=== PATIENT | male | born 1955 | race Caucasian/White ===

== ENCOUNTER 2017-02-24 01:51 | Observation (INO) | payer MEDICARE ==
[~2017-02-24] VITALS: Ht 193 cm; Wt 81.7 kg
[~2017-02-24 01:51] MED LIST: ALBU90OI INH; ALBU90OI6 INH; ASPI325EC PO; AZIT250 PO; CEPH500 PO; CHLO10 PO; CLOP75 PO; GUAI600T33 PO; IBUP800 PO; KETO10 PO; LORA1 PO; METH10 PO; METH40 PO; OXYC30 PO; OXYC80ER PO; PROM25 PO; TIOT18 IH; TRAM50 PO; WARF10 PO; WARF5 PO; XARELTO20 MG PO
[2017-02-24 02:32] LABS: BASOPHILS ABSOLUTE AUTO 0.08 K/mm3 (0.00-0.23); BASOPHILS PERCENT AUTO 1 % (0-2); EOSINOPHILS PERCENT AUTO 2 % (0-6); Hematocrit 42.5 % (37.0-53.0); IMMATURE GRAN ABSOLUTE AUTO 0.01 K/mm3 (0.00-0.10); IMMATURE GRAN PERCENT AUTO 0 % (0-1); LYMPHOCYTES ABSOLUTE AUTO 2.12 K/mm3 (0.84-5.20); LYMPHOCYTES PERCENT AUTO 32 % (21-46); MONOCYTES ABSOLUTE AUTO 0.37 K/mm3 (0.16-1.47); MONOCYTES PERCENT AUTO 6 % (4-13); Mean Corpuscular HGB Conc 32.9 g/dL (31.5-36.5); Mean Corpuscular Volume 100 fL (80-100); Mean Platelet Volume 9.7 fL (9.1-12.4); NEUTROPHILS ABSOLUTE AUTO 3.92 K/mm3 (1.96-9.15); NEUTROPHILS PERCENT AUTO 59 % (41-73); Platelet Count 244 K/mm3 (150-400); RDW Coefficient Variation 15.5 % (11.7-14.2); RDW Standard Deviation 56.5 fL (35.1-46.3); Red Blood Cell Count 4.24 M/mm3 (4.30-5.90)
[2017-02-24 02:51] LABS: Anion Gap 8 mmol/L (6-16); Blood Urea Nitrogen 11 mg/dL (8-24); Bun/Creatinine Ratio 11.9 (12.0-20.0); CO2, Blood 25 mmol/L (21-32); Calcium, Blood 8.2 mg/dL (8.5-10.1); Chloride, Blood 109 mmol/L (98-108); Creatinine, Blood 0.93 mg/dL (0.60-1.20); Glomerular Filtration Rate >60 (60-); Glucose, Blood 98 mg/dL (70-99); Potassium, Blood 3.8 mmol/L (3.5-5.5); Sodium, Blood 142 mmol/L (136-145); Troponin I <0.015 ng/mL (0.000-0.040)
[2017-02-24 03:36] LABS: Ethanol (Alcohol), Blood, Med 381 mg/dL
== END 2017-02-24 05:52 | disposition home or self-care (01) ==
LOC: ER 01:51 → EOR 01:52
PROVIDERS: Emergency Medicine
DX: F10.129 Alcohol abuse with intoxication, unspecified (principal); Z79.82 Long term (current) use of aspirin; R10.9 Unspecified abdominal pain; F17.200 Nicotine dependence, unspecified, uncomplicated; Z86.73 Personal history of transient ischemic attack (TIA), and cerebral infarction without residual deficits; Z86.718 Personal history of other venous thrombosis and embolism; Z88.5 Allergy status to narcotic agent; Z79.899 Other long term (current) drug therapy; Z98.890 Other specified postprocedural states
CPT/HCPCS: 36415; 71046; 74177; 80048; 82272; 83690; 84484; 85025; 93005; 93010; 96361; 96374; 99285; G0378; G0480; J2060; J7030; Q9967

== ENCOUNTER 2019-05-27 18:37 | Emergency (ER) | payer MEDICARE, OTHER ==
[~2019-05-27] VITALS: Ht 193 cm; Wt 95.2 kg
[2019-05-27 19:34] LABS: BASOPHILS ABSOLUTE AUTO 0.07 K/mm3 (0.00-0.23); BASOPHILS PERCENT AUTO 1 % (0-2); EOSINOPHILS ABSOLUTE AUTO 0.47 K/mm3 (0.00-0.68); EOSINOPHILS PERCENT AUTO 7 % (0-6); Hematocrit 42.8 % (37.0-53.0); Hemoglobin 14.5 g/dL (13.5-17.5); IMMATURE GRAN ABSOLUTE AUTO 0.01 K/mm3 (0.00-0.10); IMMATURE GRAN PERCENT AUTO 0 % (0-1); LYMPHOCYTES ABSOLUTE AUTO 1.31 K/mm3 (0.84-5.20); LYMPHOCYTES PERCENT AUTO 21 % (21-46); MONOCYTES ABSOLUTE AUTO 0.67 K/mm3 (0.16-1.47); MONOCYTES PERCENT AUTO 11 % (4-13); Mean Corpuscular HGB Conc 33.9 g/dL (31.5-36.5); Mean Corpuscular Volume 98 fL (80-100); Mean Platelet Volume 9.8 fL (9.1-12.4); NEUTROPHILS ABSOLUTE AUTO 3.86 K/mm3 (1.96-9.15); NEUTROPHILS PERCENT AUTO 60 % (41-73); Platelet Count 248 K/mm3 (150-400); RDW Coefficient Variation 14.3 % (11.7-14.2); RDW Standard Deviation 51.4 fL (35.1-46.3); Red Blood Cell Count 4.39 M/mm3 (4.30-5.90); White Blood Cell Count 6.39 K/mm3 (4.00-11.30)
[2019-05-27 19:55] LABS: Alanine Aminotransfer (ALT/SGP 20 U/L (12-78); Albumin/Globulin Ratio 0.7 (0.8-1.8); Alk Phos 54 U/L (50-136); Anion Gap 6 mmol/L (6-16); Aspartate Aminotrans (AST/SGOT 30 U/L (12-37); Bilirubin, Total 0.3 mg/dL (0.1-1.0); Blood Urea Nitrogen 10 mg/dL (8-24); Bun/Creatinine Ratio 12.2 (12.0-20.0); CO2, Blood 22 mmol/L (21-32); Calcium, Blood 8.6 mg/dL (8.5-10.1); Chloride, Blood 112 mmol/L (98-108); Creatinine, Blood 0.82 mg/dL (0.60-1.20); Ethanol (Alcohol), Blood, Med 257 mg/dL; Globulin, Blood 4.5 g/dL (2.2-4.0); Glomerular Filtration Rate >60 (60-); Glucose, Blood 110 mg/dL (70-99); Potassium, Blood 4.2 mmol/L (3.5-5.5); Sodium, Blood 140 mmol/L (136-145); Total Protein, Blood 7.5 g/dL (6.4-8.2); Troponin I <0.015 ng/mL (0.000-0.040)
== END 2019-05-27 22:05 | disposition home or self-care (01) ==
LOC: ER 18:37
PROVIDERS: Emergency Medicine
DX: R07.9 Chest pain, unspecified (principal); R91.8 Other nonspecific abnormal finding of lung field; N28.1 Cyst of kidney, acquired; F17.210 Nicotine dependence, cigarettes, uncomplicated; Z86.711 Personal history of pulmonary embolism; Z88.5 Allergy status to narcotic agent; Z79.82 Long term (current) use of aspirin; Z86.718 Personal history of other venous thrombosis and embolism; Z86.73 Personal history of transient ischemic attack (TIA), and cerebral infarction without residual deficits
CPT/HCPCS: 71260; 80053; 83880; 84484; 85025; 93005; 93010; 99284-25; G0480; Q9967

== ENCOUNTER 2019-12-02 12:02 | Emergency (ER) | payer MEDICARE, OTHER ==
[~2019-12-02] VITALS: Ht 190.5 cm; Wt 83.9 kg
[2019-12-02 12:59] LABS: BASOPHILS ABSOLUTE AUTO 0.06 K/mm3 (0.00-0.23); BASOPHILS PERCENT AUTO 1 % (0-2); EOSINOPHILS ABSOLUTE AUTO 0.35 K/mm3 (0.00-0.68); EOSINOPHILS PERCENT AUTO 4 % (0-6); Hematocrit 48.5 % (37.0-53.0); Hemoglobin 15.9 g/dL (13.5-17.5); IMMATURE GRAN ABSOLUTE AUTO 0.03 K/mm3 (0.00-0.10); IMMATURE GRAN PERCENT AUTO 0 % (0-1); LYMPHOCYTES ABSOLUTE AUTO 1.35 K/mm3 (0.84-5.20); LYMPHOCYTES PERCENT AUTO 16 % (21-46); MONOCYTES ABSOLUTE AUTO 0.84 K/mm3 (0.16-1.47); MONOCYTES PERCENT AUTO 10 % (4-13); Mean Corpuscular HGB 32.6 pg (26.0-34.0); Mean Corpuscular HGB Conc 32.8 g/dL (31.5-36.5); Mean Corpuscular Volume 100 fL (80-100); Mean Platelet Volume 10.4 fL (9.1-12.4); NEUTROPHILS ABSOLUTE AUTO 5.71 K/mm3 (1.96-9.15); NEUTROPHILS PERCENT AUTO 68 % (41-73); Platelet Count 185 K/mm3 (150-400); RDW Coefficient Variation 15.1 % (11.7-14.2); RDW Standard Deviation 55.9 fL (35.1-46.3); Red Blood Cell Count 4.87 M/mm3 (4.30-5.90); White Blood Cell Count 8.34 K/mm3 (4.00-11.30)
[2019-12-02 13:15] LABS: International Normalized Ratio 0.99; Prothrombin Time Results 10.6 Sec (9.7-11.5)
[2019-12-02 13:25] LABS: Alanine Aminotransfer (ALT/SGP 17 U/L (12-78); Albumin, Blood 3.4 g/dL (3.4-5.0); Albumin/Globulin Ratio 0.7 (0.8-1.8); Alk Phos 59 U/L (50-136); Anion Gap 7 mmol/L (6-16); Aspartate Aminotrans (AST/SGOT 36 U/L (12-37); Bilirubin, Total 0.5 mg/dL (0.1-1.0); Blood Urea Nitrogen 8 mg/dL (8-24); Bun/Creatinine Ratio 11.6 (12.0-20.0); CO2, Blood 24 mmol/L (21-32); Calcium, Blood 9.6 mg/dL (8.5-10.1); Chloride, Blood 105 mmol/L (98-108); Creatinine, Blood 0.69 mg/dL (0.60-1.20); Globulin, Blood 5.2 g/dL (2.2-4.0); Glomerular Filtration Rate >60 (60-); Glucose, Blood 91 mg/dL (70-99); Sodium, Blood 136 mmol/L (136-145); Total Protein, Blood 8.6 g/dL (6.4-8.2)
[2019-12-02] MEDS ORDERED: ELIQUIS5 MG PO (17:10)
== END 2019-12-02 17:10 | disposition home or self-care (01) ==
LOC: ER 12:02
PROVIDERS: Physician Assistant
DX: I82.401 Acute embolism and thrombosis of unspecified deep veins of right lower extremity (principal); Z79.01 Long term (current) use of anticoagulants; Z88.5 Allergy status to narcotic agent; Z79.899 Other long term (current) drug therapy; Z79.82 Long term (current) use of aspirin
CPT/HCPCS: 36415; 71260; 80053; 85025; 85610; 93005; 93010; 93971; 96374; 99284-25; J2060; Q9967

== ENCOUNTER 2020-04-05 18:40 | Emergency (ER) | payer MEDICARE, OTHER ==
[~2020-04-05] VITALS: Ht 190.5 cm; Wt 95.2 kg
[~2020-04-05 18:40] MED LIST changes: +ACET325 PO; +ELIQUIS5 MG PO; +Percocet 5-3251 EACH PO; +Roxicodone5 MG PO
[2020-04-05] MEDS ORDERED: Norco 5-325 Ta1 EACH PO (20:43)
== END 2020-04-05 21:26 | disposition home or self-care (01) ==
LOC: ER 18:40
DX: M87.9 Osteonecrosis, unspecified (principal); F17.210 Nicotine dependence, cigarettes, uncomplicated; Z88.5 Allergy status to narcotic agent; Z79.01 Long term (current) use of anticoagulants; Z86.73 Personal history of transient ischemic attack (TIA), and cerebral infarction without residual deficits; Z86.718 Personal history of other venous thrombosis and embolism
CPT/HCPCS: 73502; 96374; 96375; 99283-25; A9270; J1170; J2405

== ENCOUNTER 2020-06-26 19:35 | Emergency (ER) | payer MEDICARE, OTHER ==
[~2020-06-26] VITALS: Ht 190.5 cm; Wt 95.2 kg
[~2020-06-26 19:35] MED LIST changes: +Norco 5-325 Ta1 EACH PO
== END 2020-06-26 21:50 | disposition home or self-care (01) ==
LOC: ER 19:35
DX: S73.004A Unspecified dislocation of right hip, initial encounter (principal); F17.210 Nicotine dependence, cigarettes, uncomplicated; Z88.5 Allergy status to narcotic agent; Z79.01 Long term (current) use of anticoagulants; Z88.6 Allergy status to analgesic agent; Z86.73 Personal history of transient ischemic attack (TIA), and cerebral infarction without residual deficits; X50.1XXA Overexertion from prolonged static or awkward postures, initial encounter
CPT/HCPCS: 27266; 72170; 96374-59; 96375-59; 99284-25; A9270; J2405; J2704; J3010; J7030

== ENCOUNTER 2020-07-07 17:44 | Emergency (ER) | payer MEDICARE, OTHER ==
[~2020-07-07] VITALS: Ht 185.4 cm; Wt 95.2 kg
== END 2020-07-07 20:14 | disposition home or self-care (01) ==
LOC: ER 17:44
DX: T84.020A Dislocation of internal right hip prosthesis, initial encounter (principal); F17.210 Nicotine dependence, cigarettes, uncomplicated; Z86.73 Personal history of transient ischemic attack (TIA), and cerebral infarction without residual deficits; Z88.5 Allergy status to narcotic agent; Z79.01 Long term (current) use of anticoagulants
CPT/HCPCS: 27250; 73502; 96374-59; 99284-25; J1170; J2704; J7030

== ENCOUNTER 2020-07-11 03:49 | Emergency (ER) | payer MEDICARE, OTHER ==
[~2020-07-11] VITALS: Ht 182.9 cm; Wt 95.2 kg
== END 2020-07-11 06:33 | disposition home or self-care (01) ==
LOC: ER 03:49
DX: S73.014A Posterior dislocation of right hip, initial encounter (principal); F17.210 Nicotine dependence, cigarettes, uncomplicated; Z88.5 Allergy status to narcotic agent; Z79.01 Long term (current) use of anticoagulants; Z86.73 Personal history of transient ischemic attack (TIA), and cerebral infarction without residual deficits; X50.1XXA Overexertion from prolonged static or awkward postures, initial encounter
CPT/HCPCS: 27250; 72170; 73502; 96374-59; 96375-59; 99284-25; A9270; J1170; J2405; J2704; J3010; J7030

== ENCOUNTER 2020-07-22 07:19 | Emergency (ER) | payer MEDICARE, OTHER ==
[~2020-07-22] VITALS: Ht 190.5 cm; Wt 95.2 kg
[2020-07-22 07:59] LABS: BASOPHILS ABSOLUTE AUTO 0.04 K/mm3 (0.00-0.23); BASOPHILS PERCENT AUTO 1 % (0-2); EOSINOPHILS ABSOLUTE AUTO 0.24 K/mm3 (0.00-0.68); EOSINOPHILS PERCENT AUTO 5 % (0-6); Hematocrit 39.9 % (37.0-53.0); Hemoglobin 13.2 g/dL (13.5-17.5); IMMATURE GRAN ABSOLUTE AUTO 0.01 K/mm3 (0.00-0.10); IMMATURE GRAN PERCENT AUTO 0 % (0-1); LYMPHOCYTES ABSOLUTE AUTO 1.54 K/mm3 (0.84-5.20); LYMPHOCYTES PERCENT AUTO 29 % (21-46); MONOCYTES ABSOLUTE AUTO 0.95 K/mm3 (0.16-1.47); MONOCYTES PERCENT AUTO 18 % (4-13); Mean Corpuscular HGB 31.7 pg (26.0-34.0); Mean Corpuscular HGB Conc 33.1 g/dL (31.5-36.5); Mean Corpuscular Volume 96 fL (80-100); Mean Platelet Volume 9.3 fL (9.1-12.4); NEUTROPHILS ABSOLUTE AUTO 2.54 K/mm3 (1.96-9.15); NEUTROPHILS PERCENT AUTO 48 % (41-73); Platelet Count 271 K/mm3 (150-400); RDW Coefficient Variation 17.3 % (11.7-14.2); RDW Standard Deviation 61.4 fL (35.1-46.3); Red Blood Cell Count 4.17 M/mm3 (4.30-5.90); White Blood Cell Count 5.32 K/mm3 (4.00-11.30)
[2020-07-22 08:18] LABS: Alanine Aminotransfer (ALT/SGP 16 U/L (12-78); Albumin, Blood 3.1 g/dL (3.4-5.0); Albumin/Globulin Ratio 0.6 (0.8-1.8); Alk Phos 66 U/L (50-136); Anion Gap 7 mmol/L (6-16); Aspartate Aminotrans (AST/SGOT 26 U/L (12-37); Bilirubin, Total 0.2 mg/dL (0.1-1.0); Blood Urea Nitrogen 6 mg/dL (8-24); Bun/Creatinine Ratio 9.7 (12.0-20.0); CO2, Blood 20 mmol/L (21-32); Chloride, Blood 110 mmol/L (98-108); Creatinine, Blood 0.62 mg/dL (0.60-1.20); Globulin, Blood 5.2 g/dL (2.2-4.0); Glomerular Filtration Rate >60 (60-); Glucose, Blood 88 mg/dL (70-99); Potassium, Blood 4.1 mmol/L (3.5-5.5); Sodium, Blood 137 mmol/L (136-145); Total Protein, Blood 8.3 g/dL (6.4-8.2); Troponin I <0.015 ng/mL (0.000-0.040)
[2020-07-22] MEDS ORDERED: OXYC5 PO (09:32)
[2020-07-22] MEDS ORDERED: ALBU2.5V5 NEB (09:32)
[2020-07-22] MEDS ORDERED: ALBU90OI INH (09:32)
== END 2020-07-22 10:30 | disposition home or self-care (01) ==
LOC: ER 07:19
PROVIDERS: Emergency Medicine
DX: R06.02 Shortness of breath (principal); F17.210 Nicotine dependence, cigarettes, uncomplicated; Z86.718 Personal history of other venous thrombosis and embolism; Z96.641 Presence of right artificial hip joint; Z86.73 Personal history of transient ischemic attack (TIA), and cerebral infarction without residual deficits; Z20.822 Contact with and (suspected) exposure to COVID-19; Z88.5 Allergy status to narcotic agent; Z79.01 Long term (current) use of anticoagulants
CPT/HCPCS: 36415; 71046; 80053; 83880; 84484; 85025; 93005; 93010; 94640; 96374; 96375; 99285-25; J1170; J2405; J2930

== ENCOUNTER 2020-07-28 07:50 | Day surgery (SDC) | payer MEDICARE, OTHER ==
[~2020-07-28] VITALS: Ht 190.5 cm; Wt 87.0 kg
[~2020-07-28 07:50] MED LIST changes: +ALBU2.5V5 NEB; +OXYC5 PO
[2020-07-28 09:50] LABS: SARS-Cov-2 (COVID-19) PCR, MMC NEGATIVE (NEGATIVE)
--- NOTE | 2020-07-28 10:10 | NUR ---
PT C/O 8/10 RIGHT LEG AND FOOT PAIN. NORCO5/325 MG PO ORDERED BY [address] SAMPSON. DOCTOR IS HERE TO SEE PATIENT.
--- NOTE | 2020-07-28 10:15 | NUR ---
NORCO 5/325 MG PO GIVEN FOR 8/10 RIGHT FOOT AND LEG PAIN.
--- NOTE | 2020-07-28 10:58 | NUR ---
PT PAIN IS NOT CONTROLLED. SAID HE HAS AN OPIATE ADDICTION HISTORY.
--- NOTE | 2020-07-28 11:10 | NUR ---
FENTANYL 50 MG IV GIVEN FOR 8/10 RIGHT LEG PAIN.
--- NOTE | 2020-07-28 11:20 | NUR ---
PT. PAIN LEVEL 6/10.
--- NOTE | 2020-07-28 11:31 | NUR ---
ADDITIONAL FENTANYL 50 MCG/ML IV GIVEN FOR CONTINUED 6/10 RIGHT LEG AND FOOT PAIN.
--- NOTE | 2020-07-28 11:41 | NUR ---
PAIN LEVEL 1/10 WITH INTERMITTENT LEG SPASM.
--- NOTE | 2020-07-28 12:25 | NUR ---
PT TAKEN TO IR LAB BY ROXANN HERNANDEZ
[2020-07-28] MEDS ORDERED: CLOP75 PO (16:49)
--- NOTE | 2020-07-28 17:05 | NUR ---
RECEIVED REPORT ON PATIENT FROM ZHAO HACKETT. RIGHT VENOUS SITE DRESSING DRY AND INTACT. NO SWELLING OR BLEEDING. RIGHT VENOUS NECK DRESSING DRY AND INTACT. NO SWELLING OR BLEEDING. PATIENT COMPLAINS OF PAIN RIGHT LEG.
--- NOTE | 2020-07-28 17:32 | NUR ---
PATIENT STATES THAT RIGHT LEG PAIN HAS EASED UP. PAIN WENT FROM 8/10 TO 7/10
--- NOTE | 2020-07-28 17:51 | NUR ---
PATIENT GIVEN 300 [address] PER [address] SABILLON ORDER.
--- NOTE | 2020-07-28 18:38 | NUR ---
PATIENT DRESSED AND SITTING IN RECLINER WITH FEET ELEVATED. RESTING AWAITING RIDE HOME.
--- NOTE | 2020-07-28 19:06 | NUR ---
PATIENT VERBALIZED UNDERSTANDING OF DISCHARGE INSTRUCTIONS AND PRECAUTIONS. BOTH RIGHT LEG AND NECK SITES REAMIN STABLE, DRESSINGS DRY AND INTACT. TAKEN TO WA[facility]ING [employer] FOR TRANSPORT HOME. PATIENT HAD REMOVED IV BY SELF BEFORE I CALLED [employer].
== END 2020-07-28 22:49 | disposition home or self-care (01) ==
LOC: MHTC 07:50
PROVIDERS: Radiology Diagnostic Radiology
DX: I82.503 Chronic embolism and thrombosis of unspecified deep veins of lower extremity, bilateral (principal); I82.513 Chronic embolism and thrombosis of femoral vein, bilateral; M79.661 Pain in right lower leg; M79.89 Other specified soft tissue disorders; Z20.822 Contact with and (suspected) exposure to COVID-19; Z86.73 Personal history of transient ischemic attack (TIA), and cerebral infarction without residual deficits; J44.9 Chronic obstructive pulmonary disease, unspecified; Z88.5 Allergy status to narcotic agent; Z79.01 Long term (current) use of anticoagulants
CPT/HCPCS: 37187; 37238; 37239; 37248; 75820; 75822; 75825; 76937; 85347; 99152; 99153; A9270; C1725; C1757; C1769; C1887; C1894; J0690; J1644; J2250; J3010; J7030; J7050; Q9967; U0004

== ENCOUNTER 2021-10-10 21:33 | Inpatient (IN) | payer OTHER ==
[~2021-10-10] VITALS: Ht 190.5 cm; Wt 79.7 kg
[2021-10-10 22:19] LABS: BASOPHILS ABSOLUTE AUTO 0.04 K/mm3 (0.00-0.23); BASOPHILS PERCENT AUTO 1 % (0-2); EOSINOPHILS ABSOLUTE AUTO 0.12 K/mm3 (0.00-0.68); EOSINOPHILS PERCENT AUTO 2 % (0-6); Hematocrit 41.1 % (37.0-53.0); Hemoglobin 13.9 g/dL (13.5-17.5); IMMATURE GRAN ABSOLUTE AUTO 0.03 K/mm3 (0.00-0.10); IMMATURE GRAN PERCENT AUTO 0 % (0-1); LYMPHOCYTES ABSOLUTE AUTO 1.14 K/mm3 (0.84-5.20); LYMPHOCYTES PERCENT AUTO 16 % (21-46); MONOCYTES ABSOLUTE AUTO 0.99 K/mm3 (0.16-1.47); MONOCYTES PERCENT AUTO 14 % (4-13); Mean Corpuscular HGB 32.5 pg (26.0-34.0); Mean Corpuscular HGB Conc 33.8 g/dL (31.5-36.5); Mean Corpuscular Volume 96 fL (80-100); Mean Platelet Volume 10.9 fL (9.1-12.4); NEUTROPHILS PERCENT AUTO 67 % (41-73); Platelet Count 198 K/mm3 (150-400); RDW Coefficient Variation 14.2 % (11.7-14.2); Red Blood Cell Count 4.28 M/mm3 (4.30-5.90); White Blood Cell Count 7.12 K/mm3 (4.00-11.30)
[2021-10-10 22:31] LABS: Albumin, Blood 3.2 g/dL (3.4-5.0); Albumin/Globulin Ratio 0.7 (0.8-1.8); Bilirubin, Total 0.9 mg/dL (0.1-1.0); Bun/Creatinine Ratio 13.4 (12.0-20.0); Calcium, Blood 9.3 mg/dL (8.5-10.1); Creatinine, Blood 0.6 mg/dL (0.60-1.20); Globulin, Blood 4.8 g/dL (2.2-4.0); Potassium, Blood 3.2 mmol/L (3.5-5.5)
[2021-10-11 02:00] LABS: Anti-Xa UFH, PHA Monitoring <0.10 IU/mL; International Normalized Ratio 1.08; Prothrombin Time Results 11.3 Sec (9.7-11.5)
[2021-10-11 05:52] LABS: BASOPHILS ABSOLUTE AUTO 0.04 K/mm3 (0.00-0.23); BASOPHILS PERCENT AUTO 1 % (0-2); EOSINOPHILS ABSOLUTE AUTO 0.23 K/mm3 (0.00-0.68); EOSINOPHILS PERCENT AUTO 3 % (0-6); Hematocrit 36.7 % (37.0-53.0); Hemoglobin 12.6 g/dL (13.5-17.5); IMMATURE GRAN ABSOLUTE AUTO 0.02 K/mm3 (0.00-0.10); IMMATURE GRAN PERCENT AUTO 0 % (0-1); LYMPHOCYTES ABSOLUTE AUTO 1.18 K/mm3 (0.84-5.20); LYMPHOCYTES PERCENT AUTO 17 % (21-46); MONOCYTES ABSOLUTE AUTO 1.03 K/mm3 (0.16-1.47); MONOCYTES PERCENT AUTO 15 % (4-13); Mean Corpuscular HGB Conc 34.3 g/dL (31.5-36.5); Mean Corpuscular Volume 96 fL (80-100); Mean Platelet Volume 10.9 fL (9.1-12.4); NEUTROPHILS ABSOLUTE AUTO 4.41 K/mm3 (1.96-9.15); NEUTROPHILS PERCENT AUTO 64 % (41-73); Platelet Count 161 K/mm3 (150-400); RDW Coefficient Variation 14.1 % (11.7-14.2); RDW Standard Deviation 49.6 fL (35.1-46.3); Red Blood Cell Count 3.82 M/mm3 (4.30-5.90); White Blood Cell Count 6.91 K/mm3 (4.00-11.30)
[2021-10-11 06:15] LABS: Albumin, Blood 2.7 g/dL (3.4-5.0); Albumin/Globulin Ratio 0.7 (0.8-1.8); Bilirubin, Total 0.8 mg/dL (0.1-1.0); Bun/Creatinine Ratio 15.1 (12.0-20.0); Calcium, Blood 8.9 mg/dL (8.5-10.1); Creatinine, Blood 0.6 mg/dL (0.60-1.20); Globulin, Blood 3.8 g/dL (2.2-4.0); Potassium, Blood 3.3 mmol/L (3.5-5.5); Total Protein, Blood 6.5 g/dL (6.4-8.2)
--- NOTE | 2021-10-11 16:49 | NUR ---
PT TO HEART CENTER AT ABOUT 1500
--- NOTE | 2021-10-11 16:59 | NUR ---
SPOKE WITH DR. PRADO AT ABOUT 1600 CONCERNING PT POTASSIUM OF 3.3 AT 0530. PT DID RECEIVE PO POTASSIUM CHLORIDE AT 0301 IN THE ER, SEE ORDERS. NO NEW ORDERS AT THIS TIME. PT HAS DENIED CP TODAY.
--- NOTE | 2021-10-11 18:42 | NUR ---
TRANSFER: Pt transferred to ICU at 1750. Right lower leg dressing bleeding upon arrival. Dressing changed with operations label clerk RNs present. TPA and heparin started per eMAR. Pedal pulses found via doppler.
--- NOTE | 2021-10-11 18:54 | NUR ---
PT HAD NO SIGNS OR SYMPTOMS OF WITHDRAWAL TODAY BEFORE PROCEDURE. REPORT PASSED TO VICE PRESIDENT INVESTOR RELATIONSROXANN VASQUEZ AT ABOUT 1840
--- NOTE | 2021-10-11 19:28 | NUR ---
ASSUMED CARE PT IS A/O X4. SITTING UP IN BED WATCHING TV AND EATING DINNER. PT C/O PAIN IN LOWER BACK 08/27. DILAUID GIVEN AT 1829, NEXT DOSE DUE AT 2029. PT AGREED TO WAIT UNTIL 2029 FOR PAIN MEDS. DENIES CHEST/ABD PAIN. NEURO INTACT. LUNGS CLEAR T/O. ON RA. RR EVEN AND NONLABORED. SR, BP STABLE. SHEATH IN R POST CALF INFUSING TPA. DRSG C/D/I. NO BLEEDING OR HEMATOMA NOTED. DOPPLER PULSES TO BLE. HERARIN GTT 18UNITS/KG/HR. VIODING IN URINAL IND.
--- NOTE | 2021-10-11 22:38 | NUR ---
NOTIFIED PHARMACY OF HEPARIN ANTI-XA LEVEL.
--- NOTE | 2021-10-12 02:32 | NUR ---
WHILE MEDICATING PT FOR PAIN WITH DILAUDID PT HAS ASKED NUMEROUS TIMES TO 'PUSH IT FAST. IT SEEMS TO WORK BETTER'. PT EDUCATED ON WHY THAT CAN NOT BE DONE AND THE RISKS ASSOCIATED WITH IT.
--- NOTE | 2021-10-12 04:38 | NUR ---
MD CALL NOTIFIED DR SAMPSON REGARDING 9X5CM HEMATOMA AND SWELLING TO POST RIGHT CALF. OBTAINED ORDER TO DECREASE TPA BY 1/2 AND HEPARIN TO 500 UNITS/HR. PRESSURE BEING HELD AT HEMATOMA SITE.
--- NOTE | 2021-10-12 05:04 | NUR ---
SHEATH SITE 9X5 CM HEMATOMA REPORTED TO DR SAMPSON. HEPARIN AND TPA DECREASED. MANUAL PRESSURE HELD FOR 20 MIN. AREA NOW SOFT TO PALPATION. DOPPLER PULSES STRONGER. DRSG INTACT. WILL CONTINUE TO MONITOR.
--- NOTE | 2021-10-12 05:36 | NUR ---
SHIFT SUMMARY PT HAS BEEN MOVING SELF AROUND IN BED, REMINDED PT TO NOT BEND RIGHT KNEE MULTIPLE TIMES. SHEATH REMAINS IN R POSTIOR KNEE INFUSING TPA CURRENTLY AT 0.5 MG/HR AND HEPARIN GTT CURRENTLY 6.25UNITS/KG/HR VIA PIV. HEMATOMA NOTED AND PEPE PRESSURE HELD FOR 20 MIN. AREA REMAINED IMPROVED AT 30MIN RECHECK. AREA SOFT TO PALPATION. STRONG DOPPLER PEDAL PULSES. PT C/O OF PAIN T/O NIGHT -10/28. MEDICATED WITH DILAUDED Q2 WHEN REQUESTED. PT AGITATED AT TIMES, BUT COOP WITH CARE. VOIDING IN URINAL IND.
[2021-10-12 06:21] LABS: BASOPHILS ABSOLUTE AUTO 0.05 K/mm3 (0.00-0.23); BASOPHILS PERCENT AUTO 1 % (0-2); EOSINOPHILS ABSOLUTE AUTO 0.19 K/mm3 (0.00-0.68); EOSINOPHILS PERCENT AUTO 2 % (0-6); Hematocrit 34.2 % (37.0-53.0); Hemoglobin 11.6 g/dL (13.5-17.5); IMMATURE GRAN ABSOLUTE AUTO 0.04 K/mm3 (0.00-0.10); IMMATURE GRAN PERCENT AUTO 1 % (0-1); LYMPHOCYTES ABSOLUTE AUTO 0.86 K/mm3 (0.84-5.20); LYMPHOCYTES PERCENT AUTO 10 % (21-46); MONOCYTES ABSOLUTE AUTO 1.16 K/mm3 (0.16-1.47); MONOCYTES PERCENT AUTO 14 % (4-13); Mean Corpuscular HGB 33.2 pg (26.0-34.0); Mean Corpuscular HGB Conc 33.9 g/dL (31.5-36.5); Mean Corpuscular Volume 98 fL (80-100); NEUTROPHILS PERCENT AUTO 73 % (41-73); Platelet Count 143 K/mm3 (150-400); RDW Coefficient Variation 14.4 % (11.7-14.2); RDW Standard Deviation 51.8 fL (35.1-46.3); Red Blood Cell Count 3.49 M/mm3 (4.30-5.90)
[2021-10-12 06:35] LABS: Albumin, Blood 2.6 g/dL (3.4-5.0); Anion Gap 7 mmol/L (6-16); Blood Urea Nitrogen 8 mg/dL (8-24); Bun/Creatinine Ratio 14.1 (12.0-20.0); CO2, Blood 24 mmol/L (21-32); Calcium, Blood 8.8 mg/dL (8.5-10.1); Chloride, Blood 103 mmol/L (98-108); Creatinine, Blood 0.57 mg/dL (0.60-1.20); Glomerular Filtration Rate 109 (60-); Glucose, Blood 131 mg/dL (70-99); Phosphorus, Blood 2.3 mg/dL (2.5-4.9); Potassium, Blood 3.7 mmol/L (3.5-5.5); Sodium, Blood 134 mmol/L (136-145)
[2021-10-12 06:52] LABS: Anti-Xa UFH, PHA Monitoring 0.3 IU/mL
--- NOTE | 2021-10-12 07:11 | NUR ---
ASSUME CARE: I have asssumed care of this patient.
--- NOTE | 2021-10-12 08:05 | NUR ---
PROVIDER PHONE CALL: RN spoke with PA who is working with Dr Leon to discuss follow up plan as well as heparin and tpa infusion levels. Currently, TPA running at 0.5mg/hr and heparin at 6.25 u/kg/hr due to hematoma just proximal sheath insertion site. PA states plan to return to [facility] today and will follow up with Dr Leon regarding infusion rates. RN will keep pt NPO.
--- NOTE | 2021-10-12 08:10 | NUR ---
UPDATE: BYRON Castillo, instructed RN to increase heparin and TPA levels back to ordered range. Pharmacy called and notified.
--- NOTE | 2021-10-12 14:29 | NUR ---
PT TO IRON CASTER
--- NOTE | 2021-10-12 18:09 | NUR ---
RETURN TO ICU: Pt back to ICU at 1750. Insertion site at right neck and posterior right calf dressed with CHG tegaderm. Small amount of blood noted under neck dressing; will continue to monitor for bleeding. Posterior right calf dressing clean and intact, hematoma soft. Pt medicated with IV fentanyl and PO dilauded for right leg pain. He is alert and oriented x 4; [place].
--- NOTE | 2021-10-12 19:21 | NUR ---
ASSUMED CARE PT IS A/O X4. SITTING IN BED WATCHING TV. R POSTIER CALF PUNCTURE SITE FROM PREVIOUS SHEATH REMOVAL VIEWED AND PALPATED. SOFT AND TENDER. DRG C/D/I. BRUISING MARKED AND PT INSTRUCTED TO KEEP R LEG STRAIGHT. NEURO INTACT. LUNG SOUNDS CLEAR T/O. RR EVEN AND NONLABORED. ON RA. SR 80s. VSS, FEBRILE AT 100.1. VOIDING IN URINAL IND.
--- NOTE | 2021-10-12 20:08 | NUR ---
PAIN PT C/O PAIN 10/10 TO RIGHT CALF AND RIGHT NECK. PT STATES,"I JUST CAN'T STAND IT. IT'S HURTING SO BACK YOU HAVE TO DO SOMETHING". CALL OUT TO DR LAYNE REGARDING PAIN. PT HAS ALREADY RECEIVED TYLENOL, PO DILAUDID 2 MG AND FENTANYL 50 MCQ.
--- NOTE | 2021-10-12 20:15 | NUR ---
MD CALL UPDATE GIVEN TO DR LAYNE REGARDING PAIN. ORDER OBTAINED FOR IV DILAUDID ALTERNATE WITH OTHER PAIN MEDS.
--- NOTE | 2021-10-13 06:09 | NUR ---
SHIFT SUMMARY PT MOVING IN BED IND. EDUCATED ON KEEPING R LEG STRAIGHT. PT C/O OF PAIN TO R LEG AND R NECK. MEDICATED WITH PO/IV DILAUDID ALTERNATING Q4HR. HEPARIN GTT INFUSING, INCREASED FROM 12 TO 13UNITS/KG/HR. AM LABS DRAWN, AWAITING RESULTS. PT TAKING PO WITHOUT DIFFICULTY, RECEIVED MULTIPLE SNACKS T/O NIGHT. DOPPLER PULSES BLE. BRUISING NOTED ON R POST CALF PUNCTURE SITE. AREA REMAINS SOFT TO PALPATION. R IJ PUNCTURE SITE W/ SLIGHT BLEEDING. DRSG INTACT. PT USING URINAL TO VOID.
[2021-10-13 06:44] LABS: Hematocrit 30.2 % (37.0-53.0); Hemoglobin 10.5 g/dL (13.5-17.5); Mean Corpuscular HGB 32.9 pg (26.0-34.0); Mean Corpuscular HGB Conc 34.8 g/dL (31.5-36.5); Mean Corpuscular Volume 95 fL (80-100); Mean Platelet Volume 11.7 fL (9.1-12.4); Platelet Count 136 K/mm3 (150-400); RDW Coefficient Variation 14.3 % (11.7-14.2); RDW Standard Deviation 49.5 fL (35.1-46.3); Red Blood Cell Count 3.19 M/mm3 (4.30-5.90); White Blood Cell Count 9.33 K/mm3 (4.00-11.30)
[2021-10-13 06:49] LABS: Albumin, Blood 2.5 g/dL (3.4-5.0); Anion Gap 8 mmol/L (6-16); Blood Urea Nitrogen 11 mg/dL (8-24); CO2, Blood 25 mmol/L (21-32); Calcium, Blood 8.3 mg/dL (8.5-10.1); Chloride, Blood 102 mmol/L (98-108); Creatinine, Blood 0.61 mg/dL (0.60-1.20); Glomerular Filtration Rate 107 (60-); Glucose, Blood 96 mg/dL (70-99); Phosphorus, Blood 3.1 mg/dL (2.5-4.9); Potassium, Blood 3.6 mmol/L (3.5-5.5); Sodium, Blood 135 mmol/L (136-145)
--- NOTE | 2021-10-13 10:42 | NUR ---
ASSUMED CARE OF PT AT 0700 PT RESTING IN BED. HEPARIN RUNNING AT 14 UNITS. RIGHT LOWER EXTREMITY WITH HEMATOMA REPORTED TO HAVE NOT CHANGED FROM DOUBLE ENDING MACHINE OPERATOR. AREA MARKED PREVIOUS TO HAND OFF WITH NO SIGNS OF CHANGE AT THIS TIME. WILL CONTINUE TO MONITOR. SEE ASSESSMENT FOR MORE INFORMATION.
[2021-10-13 13:19] LABS: Hematocrit 29.5 % (37.0-53.0); Hemoglobin 10.2 g/dL (13.5-17.5)
--- NOTE | 2021-10-13 13:43 | NUR ---
PURSE STRING REMOVAL D[facility]NA FROM [facility] CAME TO SEE PATIENT AND REMOVE PURSE STRING SUTURES ON RIGHT LEG POSTERIOR OF THE KNEE. SUTURES REMOVED WITHOUT INCIDENT. RLE EXTREMITY DRESSING CHANGED, SITE LOOKS GOOD WITHOUT ACTIVE BLEEDING. RIGHT IJ DRESSING REMOVED AND CHANGED, SITE REMAINS INTACT AND NO ACTIVE BLEEDING. PATIENT TOLERATED WELL.
[2021-10-13] MEDS ORDERED: Percocet 10-321 EACH PO (15:15)
[2021-10-13] MEDS ORDERED: XARELTO20 MG PO ×2 (15:16→15:18)
[2021-10-13] MEDS ORDERED: CLOP75 PO (15:18)
[2021-10-13] MEDS ORDERED: Colace100 MG PO (15:19)
--- NOTE | 2021-10-13 16:03 | NUR ---
DISCHARGE PT GIVEN ALL DISCHARGE INFORMATION WITH FOLLOW UP APPOINTMENTS AND PRESCRIPTIONS THAT WERE CALLED INTO [facility]. PAPER RX FOR PERCOCET IN FOLDER WITH PACKET. PT DISPLAYED UNDERSTANDING OF ALL INSTRUCTIONS. PT LEFT UNIT VIA WHEELCHAIR TO [facility] AT 1545. ALL BELONGINGS TAKEN BY PT.
== END 2021-10-13 16:45 | disposition home or self-care (01) | DRG 271 ==
LOC: ER 21:33 → ERHOLD 21:34 → SURS 21:34 → ER 21:34 → SURS 10-11 07:09 → ERHOLD 10-11 07:09 → ICUW 10-11 17:56 → SURS 10-11 17:56 → ICUW 10-11 17:56 → ERHOLD 10-11 20:47 → ICUW 10-11 20:47 → SURS 10-11 20:47 → ICUW 10-13 16:45
PROVIDERS: Emergency Medicine; Family Medicine; Internal Medicine; Radiology Diagnostic Radiology; Student in an Organized Health Care Education/Training Program; ADMIT Family Medicine
PROC: 067C3ZZ Dilation of Right Common Iliac Vein, Percutaneous Approach (ICD-10-PCS; principal; 2021-10-12)
PROC: 06CC3ZZ Extirpation of Matter from Right Common Iliac Vein, Percutaneous Approach (ICD-10-PCS; 2021-10-12)
PROC: 06CF3ZZ Extirpation of Matter from Right External Iliac Vein, Percutaneous Approach (ICD-10-PCS; 2021-10-12)
PROC: 067F3ZZ Dilation of Right External Iliac Vein, Percutaneous Approach (ICD-10-PCS; 2021-10-12)
PROC: 067M3ZZ Dilation of Right Femoral Vein, Percutaneous Approach (ICD-10-PCS; 2021-10-12)
PROC: 3E03317 Introduction of Other Thrombolytic into Peripheral Vein, Percutaneous Approach (ICD-10-PCS; 2021-10-12)
PROC: 06CM3ZZ Extirpation of Matter from Right Femoral Vein, Percutaneous Approach (ICD-10-PCS; 2021-10-13)
PROC: 067F3DZ Dilation of Right External Iliac Vein with Intraluminal Device, Percutaneous Approach (ICD-10-PCS; 2021-10-13)
PROC: 067M3DZ Dilation of Right Femoral Vein with Intraluminal Device, Percutaneous Approach (ICD-10-PCS; 2021-10-13)
DX: I82.411 Acute embolism and thrombosis of right femoral vein (principal); E87.1 Hypo-osmolality and hyponatremia; Z66 Do not resuscitate; E87.6 Hypokalemia; D69.6 Thrombocytopenia, unspecified; E83.39 Other disorders of phosphorus metabolism; G89.29 Other chronic pain; I82.421 Acute embolism and thrombosis of right iliac vein; I82.431 Acute embolism and thrombosis of right popliteal vein; M54.50 Low back pain, unspecified; Z96.641 Presence of right artificial hip joint; F17.210 Nicotine dependence, cigarettes, uncomplicated; Z86.711 Personal history of pulmonary embolism; Z98.890 Other specified postprocedural states; Z86.73 Personal history of transient ischemic attack (TIA), and cerebral infarction without residual deficits; Z95.828 Presence of other vascular implants and grafts; Z88.5 Allergy status to narcotic agent; Z79.02 Long term (current) use of antithrombotics/antiplatelets
CPT/HCPCS: 36415; 37187; 37211; 37214; 37238; 37248; 37249; 71045; 75820; 75825; 76937; 80053; 80069; 84484; 85014; 85018; 85025; 85027; 85384; 85520; 85610; 93005; 93010; 93971; 94010; 94664; 96365; 96366; 96375; 96376; 98960; 99152; 99153; 99285-25; 99406; A9270; C1725; C1751; C1757; C1769; C1876; C1887; C1894; G0378; G0480; J1170; J1644; J2250; J2405; J2997; J3010; J7030; J7040; J7050; Q9967

== ENCOUNTER 2022-05-28 21:02 | Emergency (ER) | payer OTHER ==
[~2022-05-28] VITALS: Ht 193 cm; Wt 90.7 kg
[~2022-05-28 21:02] MED LIST changes: +Colace100 MG PO; +Nicoderm Cq1 EAC1 TOP; +Percocet 10-321 EACH PO
[2022-05-28] MEDS ORDERED: XARELTO20 MG PO (21:39)
[2022-05-29] MEDS ORDERED: CYCL10 PO (00:09)
[2022-05-29] MEDS ORDERED: KETO10 PO (00:09)
== END 2022-05-29 00:28 | disposition home or self-care (01) ==
LOC: ER 21:02
DX: M54.50 Low back pain, unspecified (principal); G89.29 Other chronic pain; Z88.5 Allergy status to narcotic agent; Z79.899 Other long term (current) drug therapy; J44.9 Chronic obstructive pulmonary disease, unspecified; F17.210 Nicotine dependence, cigarettes, uncomplicated
CPT/HCPCS: 51798; 72100; 96372; 99283-25; A9270; J1885

== ENCOUNTER 2023-10-17 17:46 | Emergency (ER) | payer OTHER ==
[~2023-10-17] VITALS: Ht 188 cm; Wt 71.7 kg
[~2023-10-17 17:46] MED LIST changes: +CYCL10 PO
[2023-10-17 18:20] VITALS: BP 116/91
[2023-10-17] MEDS ORDERED: Ketorolac Tromethamine 30mg Vial IM ONE (19:35)
[2023-10-17] MEDS ORDERED: Cephalexin Monohydrate 500 MG Cap PO ONE (19:35)
[2023-10-17] MEDS ORDERED: CEPH500 PO (19:36)
== END 2023-10-17 19:53 | disposition home or self-care (01) ==
LOC: ER 17:46
DX: L03.113 Cellulitis of right upper limb (principal); Z88.5 Allergy status to narcotic agent; Z79.899 Other long term (current) drug therapy; J44.9 Chronic obstructive pulmonary disease, unspecified; F17.210 Nicotine dependence, cigarettes, uncomplicated
CPT/HCPCS: 99283; A9270; J1885

== ENCOUNTER 2023-11-10 16:17 | Emergency (ER) | payer OTHER ==
[~2023-11-10] VITALS: Ht 190.5 cm; Wt 74.8 kg
[2023-11-10 16:18] VITALS: BP 142/80
[2023-11-10] MEDS ORDERED: ELIQUIS5 M9 PO (17:54)
== END 2023-11-10 18:15 | disposition home or self-care (01) ==
LOC: ER 16:17
DX: I82.521 Chronic embolism and thrombosis of right iliac vein (principal); I82.513 Chronic embolism and thrombosis of femoral vein, bilateral; I82.531 Chronic embolism and thrombosis of right popliteal vein; I82.811 Embolism and thrombosis of superficial veins of right lower extremity; F17.210 Nicotine dependence, cigarettes, uncomplicated; Z95.820 Peripheral vascular angioplasty status with implants and grafts; Z88.5 Allergy status to narcotic agent; Z79.01 Long term (current) use of anticoagulants; Z79.899 Other long term (current) drug therapy; Z79.2 Long term (current) use of antibiotics; Z86.73 Personal history of transient ischemic attack (TIA), and cerebral infarction without residual deficits; Z86.711 Personal history of pulmonary embolism
CPT/HCPCS: 93971; 99284-25

== ENCOUNTER 2023-11-23 18:13 | Emergency (ER) | payer OTHER ==
[~2023-11-23] VITALS: Ht 190.5 cm; Wt 74.8 kg
[~2023-11-23 18:13] MED LIST changes: +ELIQUIS5 M9 PO
[2023-11-23] MEDS ORDERED: Ketorolac Tromethamine 15mg Vial IM ONE (18:40)
[2023-11-23 21:00] VITALS: BP 143/96
[2023-11-23] MEDS ORDERED: Morphine Sulfate 4 MG/1 ML Injection IM ONE (21:40)
[2023-11-23] MEDS ORDERED: Voltaren100 GM TOP (22:30)
[2023-11-23] MEDS ORDERED: ACET500 PO (22:30)
== END 2023-11-23 23:10 | disposition home or self-care (01) ==
LOC: ER 18:13
DX: M25.551 Pain in right hip (principal); J44.9 Chronic obstructive pulmonary disease, unspecified; F17.210 Nicotine dependence, cigarettes, uncomplicated; Z96.641 Presence of right artificial hip joint; Z86.711 Personal history of pulmonary embolism; Z86.718 Personal history of other venous thrombosis and embolism; Z86.73 Personal history of transient ischemic attack (TIA), and cerebral infarction without residual deficits; Z88.5 Allergy status to narcotic agent; Z79.01 Long term (current) use of anticoagulants; Z79.899 Other long term (current) drug therapy
CPT/HCPCS: 72192; 73502; 96372; 96372-59; 99284-25; J1885; J2270

== ENCOUNTER 2024-01-17 16:22 | Emergency (ER) | payer OTHER ==
[~2024-01-17] VITALS: Ht 190.5 cm; Wt 66.7 kg
[~2024-01-17 16:22] MED LIST changes: +ACET500 PO; +Voltaren100 GM TOP
[2024-01-17 17:32] VITALS: BP 113/86
[2024-01-17] MEDS ORDERED: Ondansetron HCl 2 MG / ML 2ML Vial IV ONE (18:05)
[2024-01-17] MEDS ORDERED: HYDROmorphone HCl/Pf 1MG SYR IV ONE (18:05)
[2024-01-17] MEDS ORDERED: RX Prepack 6 Tabs Oxycodone 5mg UD ONE (19:15)
== END 2024-01-17 19:33 | disposition home or self-care (01) ==
LOC: ER 16:22
DX: G89.3 Neoplasm related pain (acute) (chronic) (principal); R10.9 Unspecified abdominal pain; Z88.5 Allergy status to narcotic agent; Z79.899 Other long term (current) drug therapy; J44.9 Chronic obstructive pulmonary disease, unspecified; F17.210 Nicotine dependence, cigarettes, uncomplicated
CPT/HCPCS: 96374; 96375; 99284-25; A9270; J1171; J2405